=== PATIENT | female | born 1995 | race Caucasian/White ===

== ENCOUNTER 2018-02-19 12:03 | Emergency (ER) | payer OTHER ==
[~2018-02-19] VITALS: Ht 170.2 cm; Wt 59.0 kg
--- OUTSIDE RECORDS SUMMARY | 2018-02-19 12:08 | XMS REPORT | Referral Summary ---
Author Author [facility] Organization [facility] Address Unknown Phone Unavailable Care Team Providers Care Paper Cup Handle Machine Operator Name Role Phone Reza Bean Reta PCP Encounter VC Date(s): 04/01/16 - 04/01/16 [facility] [address] [place], [place] [address] Discharge Disposition: 01-Home or Self Care Attending Physician: Mahesh Gibson MD Admitting Physician: Mahesh Gibson MD Vital Signs No data available for this section Problem List Condition Effective Dates Status Health Status Informant Scar, Active hypertrophic(Confirm ed) Allergies, Adverse Reactions, Alerts No Known Allergies Medications traMADol 50 mg oral tablet 50 mg 1 tabs, Oral, q4hr, as needed for pain, # 30 tabs, 0 Refill(s), called to pharmacy (Rx) Start Date: 04/01/16 Stop Date: 05/11/16 Status: Ordered TriNessa tabs, Oral, Daily, 0 Refill(s) Start Date: 11/27/15 Status: Ordered Results No data available for this section Immunizations No data available for this section Procedures Procedure Date Related Diagnosis Body Site Appendectomy 2005 Social History Social History Type Response Smoking Status Never smoker Assessment and Plan No data available for this section
--- OUTSIDE RECORDS SUMMARY | 2018-02-19 12:08 | XMS REPORT | Referral Summary ---
Author Author [facility] Organization [facility] Address Unknown Phone Unavailable Care Team Providers Care Boiler Erector Name Role Phone Reza Bean Reta PCP Encounter VC Date(s): 06/24/16 - 06/24/16 [facility] [place], [place] [address] Discharge Diagnosis: S/P plastic surgery Discharge Disposition: 01-Home or Self Care Attending Physician: Mahesh Gibson MD Admitting Physician: Mahesh Gibson MD Vital Signs Most recent to 1 oldest [Reference Range]: Respiratory Rate 16 br/min [14-20 br/min] (06/24/16 9:26 AM) Problem List Condition Effective Dates Status Health Status Informant Scar, Active hypertrophic(Confirm ed) Allergies, Adverse Reactions, Alerts No Known Allergies Medications TriNessa tabs, Oral, Daily, 0 Refill(s) Start Date: 11/27/15 Status: Ordered Results No data available for this section Immunizations No data available for this section Procedures Procedure Date Related Diagnosis Body Site Appendectomy 2005 Social History Social History Type Response Smoking Status Never smoker Assessment and Plan Extracted from: Title: Office Visit Note Author: Mahesh Gibson MD Date: 06/24/16 Assessment/Plan I would recommendcontinued scar cream andmassage. The patient will continue to do this for a total of 9 months. She can follow up with me as needed.
--- OUTSIDE RECORDS SUMMARY | 2018-02-19 12:08 | XMS REPORT | Referral Summary ---
Author Author [facility] Organization [facility] Address Unknown Phone Unavailable Care Team Providers Care Registered Nurse Supervisor Name Role Phone Reza Bean PCP Encounter VC Date(s): 04/18/16 - 04/18/16 [facility] [address] [place], [place] [address] Discharge Diagnosis: Scar, hypertrophic Discharge Disposition: 01-Home or Self Care Attending [...] Visit Note Author: Mahesh Gibson MD Date: 04/18/16 Assessment/Plan L approximated incision at this time. I would recommend any further intervention at this time. In 4 weeks the patient will start utilizing scar cream. The patient willbe Steri-Stripped today. She'll keep these on until it falls off naturally. The patient will follow up with me in 2 months time. She was instructed to start scar massage and scar creams 4 weeks from now.
--- OUTSIDE RECORDS SUMMARY | 2018-02-19 12:09 | XMS REPORT | Referral Summary ---
Author Author [facility] Organization [facility] Address Unknown Phone Unavailable Care Team Providers Care Performance Manager Name Role Phone Reza Bean Reta PCP Encounter VC Date(s): 11/27/15 - 11/27/15 [facility] [address] [place] [address] Discharge Diagnosis: Scar, hypertrophic Discharge Disposition: 01-Home or Self Care Attending Physician: Mahesh Gibson MD Admitting Physician: Mahesh Gibson MD Vital Signs Most recent to 1 oldest [Reference Range]: Respiratory Rate 18 br/min [14-20 br/min] (11/27/15 9:12 AM) Problem List Condition Effective Dates Status [...] Visit Note Author: Mahesh Gibson MD Date: 11/27/15 Assessment/Plan This is a 20-year-old female who has a hypertrophicscar of the left calf. I explained to the patient thatthis is a little different than a keloid scar. The patient has other scars on her body which are normal in appearance. She has pierced ears which had shown no keloiding. I explained to her thatmost the time in patients who have keloid scars that they havekeloiding in any time they have cuts and scarring. I also explained that the definition of a hypertrophic scar is a widening and enlargement of the scar within the confines of the laceration. It is likely that this laceration on the leg was through the dermis. I explained that if this occurs sometimes it areas of tension. With attention occurs as the scarring is happening there is some widening of the scar that occurs with the laying down of scar tissue during the proliferative phase of scar healing. I explained at this point I don't believe it would be much benefit of doing any steroid injections or anyother types of therapy. The only option would be an excision of the scar with closureand then scar treatment afterwards. I said that there is likely going to be a little bit more softening of the scar however this will be very minimal as we are now at9 months after the injury. I explained that if we did do an excision of the scar and reclosure that there is still risk that she could have widening and once again enlargement of the scar. I explained that I would do this in the procedure and she chooses to. This would be under local anesthetic. I would place deep dermal stitches along with a running subcuticular and Dermabond over the incision. I explained that afterwards in about 4 weeks' [address] we [address]a steroid within the area. I would also recommend that she use a scar cream starting about 2 months after therepair. Patient reports understanding.
[2018-02-19] MEDS ORDERED: NS IV 1000 ML 1,000 ML ONE (12:21)
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
[2018-02-19 12:28] LABS: BASOPHILS % (AUTO) 1 % (0-10); EOSINOPHILS # (AUTO) 0.1 10^3/uL (0.0-0.3); EOSINOPHILS % (AUTO) 1 % (0-10); HEMATOCRIT 37 % (35-52); HEMOGLOBIN 13.1 G/DL (11.5-16.0); LYMPHOCYTES # (AUTO) 2.2 X 10^3 (1.0-4.0); LYMPHOCYTES % (AUTO) 26 % (12-44); MEAN CORPUSCULAR HEMOGLOBIN 30 PG (25-34); MEAN CORPUSCULAR HGB CONC 35 G/DL (32-36); MEAN CORPUSCULAR VOLUME 84 FL (80-99); MEAN PLATELET VOLUME 10.2 FL (7.4-10.4); MONOCYTES # (AUTO) 0.9 X 10^3 (0.0-1.0); MONOCYTES % (AUTO) 11 % (0-12); NEUTROPHILS # (AUTO) 5.2 X 10^3 (1.8-7.8); NEUTROPHILS % (AUTO) 62 % (42-75); PLATELET COUNT 320 10^3/uL (130-400); RED BLOOD COUNT 4.44 10^6/uL (4.35-5.85); WHITE BLOOD COUNT 8.4 10^3/uL (4.3-11.0)
[2018-02-19 12:48] LABS: ALANINE AMINOTRANSFERASE 14 U/L (0-55); ALBUMIN 4.7 GM/DL (3.2-4.5); ALKALINE PHOSPHATASE 40 U/L (40-136); BILIRUBIN,TOTAL 0.6 MG/DL (0.1-1.0); BUN/CREATININE RATIO 8; CALCIUM 9.6 MG/DL (8.5-10.1); CARBON DIOXIDE 20 MMOL/L (21-32); CHLORIDE 106 MMOL/L (98-107); CREATININE SERUM 0.92 MG/DL (0.60-1.30); GFR ESTIMATED > 60; GLUCOSE 89 MG/DL (70-105); POTASSIUM 3.3 MMOL/L (3.6-5.0); SALICYLATE < 5.0 MG/DL (5.0-20.0); SODIUM 140 MMOL/L (135-145); TOTAL PROTEIN 7.8 GM/DL (6.4-8.2)
[2018-02-19 12:49] LABS: ACETAMINOPHEN < 10 UG/ML (10-30)
[2018-02-19 13:12] LABS: BILIRUBIN,URINE NEGATIVE (NEGATIVE); CLARITY,URINE CLEAR; COLOR,URINE YELLOW; GLUCOSE, URINE (UA) NEGATIVE (NEGATIVE); KETONES,URINE 1+ (NEGATIVE); LEUKOCYTE ESTERASE ,URINE 1+ (NEGATIVE); NITRITE,URINE NEGATIVE (NEGATIVE); PH,URINE 7 (5-9); PROTEIN,URINE NEGATIVE (NEGATIVE); UROBILINOGEN,URINE NORMAL (NORMAL)
[2018-02-19 13:26] LABS: AMPHETAMINE SCREEN, URINE NEGATIVE (NEGATIVE); BARBITURATE SCREEN URINE NEGATIVE (NEGATIVE); BENZODIAZEPINES SCREEN URINE NEGATIVE (NEGATIVE); CANNABINOID SCREEN, URINE NEGATIVE (NEGATIVE); COCAINE SCREEN URINE NEGATIVE (NEGATIVE); METHADONE STAT NEGATIVE (NEGATIVE); METHAMPHETAMINE SCREEN URINE S NEGATIVE (NEGATIVE); OPIATE SCREEN URINE NEGATIVE (NEGATIVE); OXYCODONE STAT NEGATIVE (NEGATIVE); PROPOXYPHENE STAT NEGATIVE (NEGATIVE); TRICYCLIC ANTIDEPRESSANTS SCRE NEGATIVE (NEGATIVE)
[2018-02-19 13:30] LABS: BACTERIA,URINE FEW /HPF
--- NOTE | 2018-02-19 14:03 | Diagnostic Imaging Report ---
PROCEDURE: CT head without contrast. TECHNIQUE: Multiple contiguous axial images were obtained through the brain without the use of intravenous contrast. INDICATION: Confusion and altered mental status. FINDINGS: The ventricles and sulci are within normal limits. No sulcal effacement, midline shift or hemorrhage is detected. Cisterns are patent. The visualized paranasal sinuses are clear. IMPRESSION: No acute intracranial process is detected. Dictated by: Dictated on workstation # [id number]
[2018-02-19] MEDS ORDERED: OLANZapine 5 MG ODT (ZyPREXA ZYDIS) PO ONE ×2 (14:15→15:30)
[2018-02-19 17:34] VITALS: BP 126/91
== END 2018-02-19 17:34 | disposition home or self-care (01) ==
LOC: ER 12:05
DX: F23 Brief psychotic disorder (principal)
CPT/HCPCS: 36415; 70450; 80053; 80306; 80320; 80329; 81000; 84443; 84703; 85025; 87088; 96360